=== PATIENT | female | born 1975 | race American Indian/Alaskan Native ===

== ENCOUNTER 2018-12-02 09:20 | Observation (INO) | payer OTHER ==
[2018-11-29 17:45] LABS: microscopic required? YES; urine erythrocyte 2+ (NEGATIVE)
[2018-11-29 17:53] LABS: PLATELET COUNT 383 x10^3mcL (130-400); RED CELL DISTRIBUTION WIDTH 13.9 % (11.5-14.5)
[2018-12-01 17:13] LABS: CALCIUM 8.5 mg/dL (8.5-10.1); CARBON DIOXIDE 28.2 mmol/L (21-32); CHLORIDE SERUM 103 mmol/L (98-107); CREATININE SERUM 0.7 mg/dL (0.6-1.0); GFR1 > 60 mL/min; GLUCOSE SERUM 83 mg/dL (74-106); POTASSIUM SERUM 3.5 mmol/L (3.5-5.1); SODIUM SERUM 140 mmol/L (136-145)
[~2018-12-02] VITALS: Ht 160 cm; Wt 116.6 kg
[2018-12-02 09:32] VITALS: BP 146/83
--- NOTE | 2018-12-02 13:20 | NUR ---
RECEIVED PT FROM PACU. TRANSFERED BY JOHANNA CABRERA VIA [facility]. PT LOOKS TO BE IN NO ACUTE DISTRESS AT THIS TIME. PT HAS AN IV TO THE LEFT FOREARM WITH NO SIGNS OF REDNESS OR SWELLING. PT STATES FEELING PAIN AT THIS TIME, WILL MEDICATE ACCORDING TO EMAR. BED IN LOWEST POSITION. CALL LIGHT WITHIN REACH. WILL CONITNUE TO MONITOR.
--- NOTE | 2018-12-02 16:09 | NUR ---
PT LAYING DOWN IN BED WITH HOB UP. PT IS ON 2L NC. GAVE PAIN MEDICATION AND PT STATES SOME RELIEF FROM THE MEDICATION. REPOSITIONED PT TO AID WITH PAIN. PLACED A PILLOW UNDER LEFT SIDE TO TAKE PRESSURE OF INCISIONAL SITE. PT STATES RELIEF FROM THE PAIN. CALL LIGHT WITHIN REACH, WILL CONTINUE TO MONITOR.
[2018-12-02 18:10] VITALS: BP 128/78
[2018-12-02 18:12] VITALS: BP 122/82
--- NOTE | 2018-12-02 18:50 | NUR ---
PT RESTING IN BED. RESPIRATIONS EVEN AND UNLABORED. PT LOOKS TO BE IN NO ACUTE DISTRESS AT THIS TIME. PILLOW UNDER THE LEFT SIDE TO HELP TAKE THE PRESSURE OFF SURGICAL SITE. PT STATES PAIN IS TOLERABLE AT THIS TIME. IV SITE TO LEFT FOREARM IS PATENT WITH NO SIGNS OF REDNESS OR SWELLING. CALL LIGHT WITHIN REACH. WILL ENDORSE TO ONCOMING SHIFT.
--- NOTE | 2018-12-02 19:20 | NUR ---
RECEIVED PT FROM PREVIOUS SHIFT NURSE. PT AOX4. DENIES DÍAZ/DIZZINESS. MED SURG PT. DENIES CP/PRESSURE. PULSES PALPABLE, NO EDEMA NOTED. LUNG SOUNDS CLEAR, ON 2L NC. DENIES SOB/DIFFICULTY BREATHING. BOWEL SOUNDS ACTIVE. VOIDS FREELY. HERNIA NOTED TO R. ABD. GEN WEAKNESS. AMB WITH ASSIST. L BACK/FLANK INCISION WITH 8 DALLIN AND SURGICAL DSG. IV TO LFA, INTACT AND PATENT. BED IN LOWEST POSITION. CALL LIGHT WITHIN REACH. WILL CONTINUE TO MONITOR.
--- NOTE | 2018-12-02 20:56 | NUR ---
PT C/O PAIN /10, AND C/O NAUSEA WITH 2 EPISODES OF VOMITING. MEDICATED PER EMAR. WILL CONTINUE TO MONITOR.
--- NOTE | 2018-12-02 20:58 | NUR ---
PT NOT TOLERATING REGULAR DIET. PER PT REQUEST, BEEF BROTH PROVIDED.
[2018-12-02 21:00] VITALS: BP 134/86
--- NOTE | 2018-12-03 01:18 | NUR ---
PT C/O PAIN 05/28. MEDICATED PER EMAR. WILL CONTINUE TO MONITOR.
--- NOTE | 2018-12-03 01:46 | NUR ---
PT C/O NAUSEA. MEDICATED PER EMAR. WILL CONTINUE TO MONITOR.
[2018-12-03 05:58] LABS: BASOPHIL % 0.5 % (0-2); PLATELET COUNT 299 x10^3mcL (130-400); RED CELL DISTRIBUTION WIDTH 13.8 % (11.5-14.5)
[2018-12-03 06:06] VITALS: BP 118/53
[2018-12-03 06:25] LABS: CALCIUM 8.9 mg/dL (8.5-10.1); CARBON DIOXIDE 28.9 mmol/L (21-32); CHLORIDE SERUM 101 mmol/L (98-107); CREATININE SERUM 0.7 mg/dL (0.6-1.0); GFR1 > 60 mL/min; GLUCOSE SERUM 100 mg/dL (74-106); SODIUM SERUM 135 mmol/L (136-145)
--- NOTE | 2018-12-03 07:10 | NUR ---
AAO X4.C/O L BACK INCISSIONAL PAIN AT 5/10 PAIN SCALE.WAS JUST MEDICATED BY LIZ RN WITH DILAUDID AT 0600.S/P L VENTRAL HERNIA REPAIR.PT NON TELE.IV SALINE LOCKED.L BACK WITH 8 DALLIN WITH DRESSING CDI.CALL LIGHT WITHIN REACH.INSTRUCTED TO CALL FOR ANY PAIN/DISCOMFORT.WILL CONTINUE TO MONITOR PT.
[2018-12-03 08:00] VITALS: BP 147/90
--- NOTE | 2018-12-03 08:35 | NUR ---
GAVE PT NORCO FOR C/O L BACK INCISSIONAL PAIN AT 8/10 PAIN SCALE.WILL CONTINUE TO MONITOR PT.
--- NOTE | 2018-12-03 09:35 | NUR ---
RECHECKED PT'S PAIN LEVEL.PT SLEEPING COMFORTABLY.NO SIGNS OF DISCOMFORT.
--- NOTE | 2018-12-03 13:51 | NUR ---
PAGED DR.HARRY CUNHA FOR PT'S C/O ITCHINESS,AND C/O BEING CONSTIPATED.AWAITING FOR HIS CALL
--- NOTE | 2018-12-03 14:38 | NUR ---
CAME TO SEE PT.ORDERED MEDS NEEDED.ALSO P.T. TO DO EVAL ON PT BEFORE GOING HOME
[2018-12-03 15:00] VITALS: BP 147/90
[2018-12-03] MEDS ORDERED: VYVANSE20 MG PO (15:22)
[2018-12-03] MEDS ORDERED: NORCO1 TA2 PO (15:22)
[2018-12-03] MEDS ORDERED: WEL75 PO (15:23)
[2018-12-03] MEDS ORDERED: ESCITALOPRAM10 M1 PO (15:23)
[2018-12-03] MEDS ORDERED: NAPROSYN500 MG PO (15:25)
[2018-12-03] MEDS ORDERED: BACLOFEN10 MG PO (15:26)
[2018-12-03] MEDS ORDERED: ZESTRIL5 MG PO (15:26)
[2018-12-03] MEDS ORDERED: FUROSEMIDE20 MG PO (15:27)
--- NOTE | 2018-12-03 15:27 | NUR ---
DRESSING CHANGED ORDERED.TOOK PICTURES ON THE INCISSION ON L LOWER BACK.
--- NOTE | 2018-12-03 15:57 | NUR ---
PHYSICAL THERAPY DONE.PT OK TO WALK WILL NEED A WALKER TO GO HOME.PAGED .AWAITING FOR CALL BACK.
--- NOTE | 2018-12-03 16:13 | NUR ---
PT D/C TO HOME IV D/C'D.RX AND DISCHARGE INSTRUCTION GIVEN PT VERBALIZES UNDERSTANDING.WENT DOWN VIA WHEELCHAIR ACCOMPANIED BY FAMILY AND MICA LAYER.
== END 2018-12-03 16:32 | disposition home or self-care (01) | DRG 354 ==
LOC: DS 09:20 → OR 11:00 → MU 11:35
PROVIDERS: Surgery; ADMIT Surgery
PROC: 0WUF0JZ Supplement Abdominal Wall with Synthetic Substitute, Open Approach (ICD-10-PCS; principal; 2018-12-02 11:00)
DX: K45.8 Other specified abdominal hernia without obstruction or gangrene (principal); Z68.41 Body mass index [BMI] 40.0-44.9, adult; I10 Essential (primary) hypertension; K21.9 Gastro-esophageal reflux disease without esophagitis; G47.33 Obstructive sleep apnea (adult) (pediatric); E66.9 Obesity, unspecified; Z85.42 Personal history of malignant neoplasm of other parts of uterus
CPT/HCPCS: C1781; G0378; J0330; J1170; J2175; J2250; J2405; J2704; J3010; J3490; J7120; Q0163